=== PATIENT | male | born 1945 ===

== ENCOUNTER 2020-12-02 07:27 | Observation (INO) ==
[~2020-12-02 07:27] MED LIST: Buffered Lidocaine 1% SYRIN 1 ml INTRADERM ONE; Lactated Ringers 1000 ml BAG 1,000 ML IV SCH
[2020-12-02] MEDS ORDERED: ceFAZolin 2 GM PREMIX 2 GM/50 ML BAG ONE (07:47)
[2020-12-02] MEDS ORDERED: ROPIVACAINE 5 MG/ML 30 ML BTL (0.5%) ONE ×2 (08:20→08:52)
[2020-12-02] MEDS ORDERED: Lidocaine 1% MPF 5 ML VIAL ONE (08:20)
[2020-12-02] MEDS ORDERED: fentaNYL 100 mcg/2 ml 50 MCG/ML VIAL ONE (08:45)
[2020-12-02] MEDS ORDERED: Lidocaine 2% PF 5 ML VIAL ONE (08:46)
[2020-12-02] MEDS ORDERED: Midazolam 2 mg/2 ml VIAL 1 mg/ml 2 ml VIAL (2 mg) ONE ×2 (08:46→09:37)
[2020-12-02] MEDS ORDERED: Propofol 10 MG/ML 20 ML BTL ONE (08:46)
[2020-12-02 09:09] LABS: Hematocrit 43 % (42-52); Hemoglobin 14.9 g/dL (14.0-18.0); Mean Corpuscular HGB Conc 34 g/dL (31-36); Mean Corpuscular Hemoglobin 33 pg (27-31); Mean Corpuscular Volume 97 fL (80-94); Mean Platelet Volume 9.3 fL (7.4-10.4); Platelet Count 190 10^3/uL (150-450); Red Blood Count 4.48 10^6 /uL (4.18-5.48); Red Cell Distribution Width 13 % (10-15); White Blood Count 7.4 10^3/uL (3.5-10.8)
[2020-12-02 09:19] LABS: INR 1.29 (0.82-1.09)
[2020-12-02] MEDS ORDERED: Rocuronium 50 mg VIAL 10 mg/ml 5 ml VIAL (50 mg) ONE ×2 (09:35→10:32)
[2020-12-02] MEDS ORDERED: Dexamethasone IV 4 MG/ML VIAL 1 ml VIAL ONE (10:16)
[2020-12-02] MEDS ORDERED: Ondansetron 4 mg VIAL 2 MG/ML 2 ml VIAL ONE (10:16)
[2020-12-02] MEDS ORDERED: EPHEDrine (Pressors) 50 MG/ML VIAL ONE (10:16)
[2020-12-02] MEDS ORDERED: HYDROmorphone 1 MG/1 ML SYRINGE ONE ×2 (10:32→12:35)
[2020-12-02] MEDS ORDERED: diPHENhydraMINE IV 50 MG/ML 1 ml VIAL (BENADRYL) IV PRN (10:39)
[2020-12-02] MEDS ORDERED: Morphine 2 MG/ML SYRINGE IV PRN (10:39)
[2020-12-02] MEDS ORDERED: Ondansetron 4 mg VIAL 2 MG/ML 2 ml VIAL IV PRN (10:39)
[2020-12-02] MEDS ORDERED: Magnesium Hydroxide LIQ 30 ML UDC PO PRN (10:39)
[2020-12-02] MEDS ORDERED: Ondansetron ODT 4 mg TAB 4 MG TAB PO PRN (10:39)
[2020-12-02] MEDS ORDERED: diPHENhydraMINE 25 mg TAB PO PRN (10:39)
[2020-12-02] MEDS ORDERED: Lactulose 30 ml UDC PO PRN (10:39)
[2020-12-02] MEDS ORDERED: Ketamine HCL 50 mg/ml 10 ml VIAL (500 MG) ONE (10:45)
[2020-12-02] MEDS ORDERED: Naloxone 0.4 mg VIAL 0.4 mg/ml 1 ml VIAL IV PRN (12:05)
[2020-12-02] MEDS ORDERED: HYDROcodone/ACETAMIN 5/325 mg TAB PO PRN (12:05)
[2020-12-02] MEDS ORDERED: DiMENhydriNATE IV 50 mg/ml 1 ml VIAL IV PUSH PRN (12:05)
[2020-12-02] MEDS ORDERED: HYDROcodone/ACETAMIN 5/325 mg TAB ONE (12:35)
[2020-12-02] MEDS: HYDROmorphone 1 MG/1 ML SYRINGE IV PRN ×3 (13:05→13:29)
[2020-12-02] MEDS: Lactated Ringers 1000 ml BAG 1,000 ML IV SCH ×2 (14:05→23:48)
[2020-12-02] MEDS ORDERED: Dextrose 50% Syringe 50 ml 25 GM/50 ML SYRINGE IV PUSH PRN (15:41)
[2020-12-02] MEDS ORDERED: Albuterol/Ipratropium NEB.SOL (2.5/0.5 MG) 3 ML NEB.SOLN INH ONE (16:03)
[2020-12-02] MEDS ORDERED: Insulin ISOPH/REG 70/30 SUBCUT SCH (18:00)
[2020-12-02] MEDS ORDERED: Metoprolol Succinate XL 200 mg TAB PO SCH (18:00)
[2020-12-02] MEDS: ceFAZolin 1 GM ADVAN 1 GM in NS 0.9% 50 ML 50 ML IVPB SCH (18:59)
[2020-12-02] MEDS: Magnesium Hydroxide LIQ 30 ML UDC PO SCH (20:59)
[2020-12-03] MEDS: ceFAZolin 1 GM ADVAN 1 GM in NS 0.9% 50 ML 50 ML IVPB SCH ×2 (02:08→09:29)
[2020-12-03] MEDS: Magnesium Hydroxide LIQ 30 ML UDC PO SCH (08:09)
[2020-12-03] MEDS ORDERED: Vitamin THERAPEUTIC TAB PO SCH (09:00)
[2020-12-03] MEDS ORDERED: Insulin ISOPH/REG 70/30 SUBCUT SCH (09:00)
[2020-12-03 10:26] LABS: Calcium 8.7 mg/dL (8.6-10.3); EGFR African American 103.5 (>60); EGFR Non-African American 85.5 (>60); Potassium 4.1 mmol/L (3.5-5.0)
[2020-12-03 11:56] VITALS: BP 139/55
[2020-12-03 13:03] LABS: Hematocrit 36 % (42-52); Hemoglobin 12.2 g/dL (14.0-18.0); Mean Platelet Volume 9.4 fL (7.4-10.4); Platelet Count 153 10^3/uL (150-450)
== END 2020-12-03 15:00 | disposition home or self-care (01) ==
LOC: INTOOBSV 07:27 → AA 07:27 → SSU 13:58
PROVIDERS: ADMIT Orthopaedic Surgery Adult Reconstructive Orthopaedic Surgery; ATTEND Orthopaedic Surgery Adult Reconstructive Orthopaedic Surgery

== ENCOUNTER 2021-02-07 10:40 | Inpatient (IN) ==
[2021-02-07 12:34] LABS: ABS Lymphocytes 0.3 10^3/ul (1.0-4.8); ABS Monocytes 0.4 10^3/ul (0-0.8); ABS Neutrophils 5.5 10^3/ul (1.5-7.7); Hematocrit 38 % (42-52); Hemoglobin 13.2 g/dL (14.0-18.0); Lymphocyte % 4.5 %; Mean Corpuscular HGB Conc 34 g/dL (31-36); Mean Corpuscular Hemoglobin 32 pg (27-31); Mean Corpuscular Volume 93 fL (80-94); Mean Platelet Volume 8.8 fL (7.4-10.4); Platelet Count 106 10^3/uL (150-450); Red Blood Count 4.11 10^6 /uL (4.18-5.48); Red Cell Distribution Width 14 % (10-15); White Blood Count 6.2 10^3/uL (3.5-10.8)
[2021-02-07 12:48] LABS: Activated Partial Thrombo Time 29.2 seconds (26.0-38.0); INR 1.53 (0.86-1.15)
[2021-02-07 12:50] LABS: ALT 38 U/L (7-52); AST 66 U/L (13-39); Albumin 3.4 g/dL (3.2-5.2); Albumin/Globulin Ratio 1.3 (1-3); Alkaline Phosphatase 90 U/L (35-149); Anion Gap 12 mmol/L (2-11); Blood Urea Nitrogen 12 mg/dL (6-24); C Reactive Protein 70.78 mg/L (<8.01); CO2 Carbon Dioxide 19 mmol/L (22-32); Calcium 8.2 mg/dL (8.6-10.3); Chloride 96 mmol/L (101-111); EGFR African American 92.4 (>60); EGFR Non-African American 76.4 (>60); Globulin 2.7 g/dL (2-4); Glucose 213 mg/dL (70-100); Sodium 127 mmol/L (135-145); Total Protein 6.1 g/dL (6.4-8.9)
[2021-02-07 12:54] LABS: Troponin I 0.04 ng/mL (<0.03)
[2021-02-07] MEDS ORDERED: Lactated Ringers 1000 ml BAG 1,000 ML IV ONE (12:56)
[2021-02-07 13:27] LABS: Urine Appearance Cloudy; Urine Bilirubin Negative (Negative); Urine Blood 1+ (Negative); Urine Color Yellow; Urine Glucose 3+(>=500 mg/dL) (Negative); Urine Ketones 1+ (Negative); Urine Nitrite Negative (Negative); Urine Protein 2+(100 mg/dL) (Negative); Urine Specific Gravity 1.015 (1.002-1.030); Urine Urobilinogen Negative (Negative)
[2021-02-07] MEDS ORDERED: DOXYcycline 100 MG in NS 0.9% 250 ml 250 ML IVPB ONE (13:55)
[2021-02-07 13:57] LABS: Urine Bacteria 1+ (Absent); Urine Red Blood Cell Trace(0-2/hpf) (Absent); Urine Squamous Epithelial Cell Present (Absent); Urine White Blood Cell Trace(0-5/hpf) (Absent)
[2021-02-07] MEDS ORDERED: Nitroglycerin 0.3 mg TAB SL PRN (15:55)
[2021-02-07] MEDS ORDERED: NS 0.9% 250 ml 250 ML ONE (16:04)
[2021-02-07] MEDS ORDERED: Dextrose 50% Syringe 50 ml 25 GM/50 ML SYRINGE IV PUSH PRN (16:24)
[2021-02-07 17:25] LABS: Troponin I 0.04 ng/mL (<0.03)
[2021-02-07 19:05] LABS: RBC Parasite Smear No Parasites Seen (No Parasite)
[2021-02-07] MEDS: Heparin 5000 UNITS/ML 1 mL VIAL SUBCUT SCH (22:14)
[2021-02-07] MEDS: Insulin GLARGINE 100 un/ml 10 ml VIAL SUBCUT SCH (23:17)
[2021-02-08 07:39] LABS: ABS Lymphocytes 0.3 10^3/ul (1.0-4.8); ABS Monocytes 0.3 10^3/ul (0-0.8); ABS Neutrophils 3.2 10^3/ul (1.5-7.7); Eosinophil % 0.2 %; Hematocrit 39 % (42-52); Hemoglobin 13.6 g/dL (14.0-18.0); Lymphocyte % 8.2 %; Mean Corpuscular HGB Conc 35 g/dL (31-36); Mean Corpuscular Hemoglobin 32 pg (27-31); Mean Corpuscular Volume 93 fL (80-94); Red Blood Count 4.23 10^6 /uL (4.18-5.48); Red Cell Distribution Width 14 % (10-15); White Blood Count 3.9 10^3/uL (3.5-10.8)
[2021-02-08] MEDS: Mometasone/Formoter 200/5 MDI INH SCH ×2 (07:49→19:15)
[2021-02-08 07:51] LABS: Albumin 3.3 g/dL (3.2-5.2); Albumin/Globulin Ratio 1.3 (1-3); C Reactive Protein 112.39 mg/L (<8.01); Calcium 8.4 mg/dL (8.6-10.3); EGFR African American 107.8 (>60); EGFR Non-African American 89.1 (>60); Globulin 2.6 g/dL (2-4); Magnesium 1.7 mg/dL (1.9-2.7); Total Bilirubin 1.7 mg/dL (0.2-1.0); Total Protein 5.9 g/dL (6.4-8.9)
[2021-02-08 08:33] LABS: Mean Platelet Volume 8.9 fL (7.4-10.4); Platelet Count 80 10^3/uL (150-450)
[2021-02-08] MEDS: Heparin 5000 UNITS/ML 1 mL VIAL SUBCUT SCH ×2 (08:43→20:42)
[2021-02-08] MEDS ORDERED: Magnesium Sulfate 2 gm BAG 2 GM/50 ML BAG IVPB ONE (10:24)
[2021-02-08] MEDS ORDERED: Perflutren Lipid Microsphere 3 ML VIAL ONE (12:31)
[2021-02-08] MEDS ORDERED: Lactated Ringers 500 ml BAG 500 ML IV ONE (16:46)
[2021-02-08] MEDS ORDERED: Lactated Ringers 500 ml BAG 500 ML IV SCH (17:00)
[2021-02-08] MEDS: Insulin GLARGINE 100 un/ml 10 ml VIAL SUBCUT SCH (20:42)
[2021-02-08] MEDS ORDERED: Al Hydrox/Mg Hydrox/Simet LIQ 30 ML UDC PO PRN (21:04)
[2021-02-09 05:34] LABS: Hematocrit 36 % (42-52); Hemoglobin 12.6 g/dL (14.0-18.0); Mean Corpuscular HGB Conc 35 g/dL (31-36); Mean Corpuscular Hemoglobin 32 pg (27-31); Mean Corpuscular Volume 92 fL (80-94); Mean Platelet Volume 9.8 fL (7.4-10.4); Platelet Count 73 10^3/uL (150-450); Red Blood Count 3.89 10^6 /uL (4.18-5.48); Red Cell Distribution Width 14 % (10-15); White Blood Count 3.3 10^3/uL (3.5-10.8)
[2021-02-09 05:52] LABS: EGFR African American 119.2 (>60); EGFR Non-African American 98.5 (>60); Magnesium 1.8 mg/dL (1.9-2.7); Potassium 3.4 mmol/L (3.5-5.0)
[2021-02-09 06:13] LABS: Anaplasma phagocytophilum Positive (Negative); B. miyamotoi PCR, B Negative (Negative); Babesia divergens/MO-1 Negative (Negative); Babesia ducani Negative (Negative); Ehrlichia chaffeensis Negative (Negative); Ehrlichia ewingii/canis Negative (Negative); Ehrlichia muris eauclairensis Negative (Negative)
[2021-02-09 06:28] LABS: RBC Morphology Normal (Normal)
[2021-02-09 06:29] LABS: ABS Eosinophils 0.2 10^3/ul (0-0.6); ABS Monocytes 0.5 10^3/ul (0-0.8); ABS Neutrophils 1.6 10^3/ul (1.5-7.7); Eosinophil % 5.8 %; Lymphocyte % 29.5 %; Nucleated Red Blood Cells % 0.1
[2021-02-09] MEDS ORDERED: Magnesium Sulfate IV 1GM/100ML 1 GM/100 ML BAG IV ONE (06:49)
[2021-02-09] MEDS ORDERED: Potassium Chlor 20 meq TAB.ER PO ONE (06:49)
[2021-02-09] MEDS: Mometasone/Formoter 200/5 MDI INH SCH (07:32)
[2021-02-09 07:40] LABS: Total Bilirubin 1.6 mg/dL (0.2-1.0)
[2021-02-09] MEDS: Heparin 5000 UNITS/ML 1 mL VIAL SUBCUT SCH (08:59)
[2021-02-09 11:51] VITALS: BP 138/58
== END 2021-02-09 13:30 | disposition home or self-care (01) | DRG 867 ==
LOC: ED 10:40 → MED 21:24
PROVIDERS: ADMIT Internal Medicine; ATTEND Internal Medicine